=== PATIENT | female | born 1985 | race Caucasian/White ===

== ENCOUNTER 2022-06-17 08:37 | Emergency (ER) | payer MEDICAID ==
[~2022-06-17] VITALS: Ht 157.5 cm; Wt 100.3 kg
[2022-06-17 08:48] VITALS: BP 134/103
--- NOTE | 2022-06-17 08:53 | NUR ---
PT AMB TO BED 9.
--- NOTE | 2022-06-17 09:02 | NUR ---
ASSUMED PATIENT CARE, NURSING ASSESSMENT COMPLETED.
[2022-06-17] MEDS ORDERED: NACL 0.9% 1,000 ML IV SCH (09:10)
[2022-06-17 09:56] LABS: APPEARANCE,URINE CLEAR (CLEAR); BILIRUBIN,URINE NEGATIVE (NEGATIVE); BLOOD, URINE TRACE-I (NEGATIVE); COLOR,URINE YELLOW (YELLOW); LEUKOCYTE ESTERASE ,URINE NEGATIVE (NEGATIVE); NITRITE, URINE NEGATIVE (NEGATIVE); UGLUCOSE NEGATIVE (NEGATIVE)
[2022-06-17 10:07] LABS: BASOPHILS # (AUTO) 0.1 K/uL (0.00-0.22); BASOPHILS % (AUTO) 0.6 % (0.0-2.0); EOSINOPHILS # (AUTO) 0.2 K/uL (0-0.4); EOSINOPHILS % (AUTO) 1.8 % (0.0-4.0); HEMATOCRIT 39.2 % (36-48); HEMOGLOBIN 12.9 g/dL (12.0-16.0); LYMPHOCYTES # (AUTO) 2.8 K/uL (2.5-16.5); LYMPHOCYTES % (AUTO) 28.7 % (20.5-51.1); MEAN CORPUSCULAR HEMOGLOBIN 26 pg (27-31); MEAN CORPUSCULAR HGB CONC 33 g/dL (33-37); MEAN CORPUSCULAR VOLUME 79.8 fL (80-94); MONOCYTES # (AUTO) 0.5 K/uL (0.8-1.0); NEUTROPHILS # (AUTO) 6.3 K/uL (1.8-7.7); NEUTROPHILS % (AUTO) 63.9 % (42.2-75.2); PLATELET COUNT (AUTO) 358 K/uL (140-450); RED BLOOD CELL COUNT(AUTO) 4.91 MIL/uL (4.20-5.40); RED CELL DISTRIBUTION WIDTH 13.9 % (11.6-13.7); WHITE BLOOD COUNT (AUTO) 9.9 K/uL (4.8-10.8)
[2022-06-17 10:30] LABS: ALBUMIN 3.8 g/dL (3.4-5.0); ANION GAP 11.5 (8-16); CARBON DIOXIDE 27.3 mmol/L (21-32); CREATININE 0.8 mg/dL (0.6-1.3); POTASSIUM 3.8 mmol/L (3.5-5.1); TOTAL BILIRUBIN 0.4 mg/dL (0.0-1.0)
[2022-06-17 10:44] LABS: RBC,URINE 0-5 /HPF (0-5); WBC,URINE 0-5 /HPF (0-5)
[2022-06-17] MEDS ORDERED: KETOROLAC 15 MG/ML VIAL ONE (10:45)
[2022-06-17] MEDS ORDERED: KETOROLAC 15 MG/ML VIAL IVP ONE (10:45)
--- NOTE | 2022-06-17 12:55 | NUR ---
SEEN AND REEVALUATED BY
[2022-06-17] MEDS ORDERED: CIPR500T4 PO (12:56)
[2022-06-17] MEDS ORDERED: METR-435 PO (12:56)
[2022-06-17 13:10] VITALS: BP 145/79
--- NOTE | 2022-06-17 13:11 | NUR ---
DISPO AND MEDICAL DECISION MAKING, DC HOME WITH E-RX AND AFTERCARE INSTRUCTIONS, UNDERSTOOD BY PATIENT WELL. DC HOME AMBULATORY, VS WNL.
== END 2022-06-17 13:10 | disposition home or self-care (01) ==
LOC: MED 08:37
DX: K57.92 Diverticulitis of intestine, part unspecified, without perforation or abscess without bleeding (principal); Z79.899 Other long term (current) drug therapy
CPT/HCPCS: 36415; 74177; 80053; 81001; 81025; 83690; 85025; 96361; 96374; 99285; J1885; Q9967; J7030